=== PATIENT | male | born 1950 | race Caucasian/White ===

== ENCOUNTER 2021-09-22 08:45 | Outpatient (CLI) | payer MEDICARE, OTHER | END 2021-09-22 08:46 | disposition home or self-care (01) | LOC: CSHCT 08:45 | PROVIDERS: ATTEND Family Medicine Sports Medicine | DX: Z12.2 Encounter for screening for malignant neoplasm of respiratory organs (principal); F17.210 Nicotine dependence, cigarettes, uncomplicated; I70.90 Unspecified atherosclerosis; I25.10 Atherosclerotic heart disease of native coronary artery without angina pectoris | CPT/HCPCS: 71271 ==

== ENCOUNTER 2022-02-10 11:27 | Emergency (ER) | payer MEDICARE, OTHER ==
[2022-02-10] MEDS ORDERED: Lidocaine 1% (PF) 30 ML VIAL ONE (12:03)
[2022-02-10] MEDS ORDERED: Bupivacaine 0.25% HCL 30 ML VIAL ONE (12:03)
[2022-02-10] MEDS ORDERED: Boostrix 0.5 ML (Tdap) VIAL ONE (12:19)
[2022-02-10] MEDS ORDERED: Triple Antibiotic Oint 1 GM Packet ONE (13:14)
== END 2022-02-10 13:17 | disposition home or self-care (01) ==
LOC: CSHERS 11:27
DX: S61.311A Laceration without foreign body of left index finger with damage to nail, initial encounter (principal); W31.2XXA Contact with powered woodworking and forming machines, initial encounter; Z23 Encounter for immunization
CPT/HCPCS: 11760; 90471; 90715; J2001; S0020

== ENCOUNTER 2022-03-22 10:37 | Outpatient (CLI) | payer MEDICARE, OTHER | END 2022-03-22 10:38 | disposition home or self-care (01) | LOC: CSHCT 10:37 | PROVIDERS: ATTEND Family Medicine Sports Medicine | DX: R91.8 Other nonspecific abnormal finding of lung field (principal); F17.210 Nicotine dependence, cigarettes, uncomplicated | CPT/HCPCS: 71271 ==

== ENCOUNTER 2023-12-04 08:39 | Outpatient (CLI) | payer MEDICARE | END 2023-12-04 08:40 | disposition home or self-care (01) | LOC: CSHCT 08:39 | PROVIDERS: ATTEND Family Medicine Sports Medicine | DX: Z12.2 Encounter for screening for malignant neoplasm of respiratory organs (principal); F17.210 Nicotine dependence, cigarettes, uncomplicated | CPT/HCPCS: 71271 ==

== ENCOUNTER 2025-10-31 08:48 | Outpatient (CLI) | payer MEDICARE | END 2025-10-31 08:49 | disposition home or self-care (01) | LOC: CSHCT 08:48 | PROVIDERS: ATTEND Family Medicine Sports Medicine | DX: Z12.2 Encounter for screening for malignant neoplasm of respiratory organs (principal); F17.210 Nicotine dependence, cigarettes, uncomplicated; I10 Essential (primary) hypertension | CPT/HCPCS: 71271 ==